=== PATIENT | female | born 1955 | race Caucasian/White ===

== ENCOUNTER 2020-04-22 14:10 | Emergency (ER) | payer BC ==
[2020-04-22 14:55] VITALS: BP 161/82; PULSE 80
--- NOTE | 2020-04-22 15:27 | EDM.PDOC ---
ED HPI GENERAL MEDICAL PROBLEM - General Chief Complaint: General Stated Complaint: BACK PAIN, SOB Time Seen by Provider: 04/22/20 14:50 Source of Information: Reports: Patient History Limitations: Reports: No Limitations - History of Present Illness INITIAL COMMENTS - FREE TEXT/NARRATIVE: This patient presents to the ED for evaluation of back pain. She states that she developed a burning pain across her back between her shoulder blades about 4 days ago. She has tried Tylenol for it but that has not helped much. She also has noticed a feeling of fullness in her chest as well as some "discomfort" down her left arm. She denies any chest pain. She also has noticed some shortness of breath in the past couple of days has well. She denies any recent illness including fever, cough or sore throat. Onset: Gradual Onset Date: 04/19/20 Duration: Getting Worse - Related Data Allergies Allergy/AdvReac Type Severity Reaction Status Date / Time Sulfa (Sulfonamide Allergy Rash Verified 12/25/15 09:05 Antibiotics) Tetracyclines Allergy Nausea Verified 12/25/15 09:05 Home Meds: Home Meds Cholecalciferol (Vitamin D3) [Vitamin D] 1,000 units PO DAILY 08/08/15 [History] Simvastatin 10 mg PO DAILY 08/08/15 [History] Tiotropium [Spiriva Handihaler] 18 mcg INH DAILY 08/08/15 [History] hydroCHLOROthiazide [Hydrochlorothiazide] 12.5 mg PO DAILY 10/09/15 [History] Past Medical History Other HEENT History: reading glassess Cardiovascular History: Reports: Hypertension Respiratory History: Reports: COPD, SOB Other Gastrointestinal History: constipation at times TARGET SETTER History: Reports: , Other (See Below) Other TARGET SETTER History: section 2x Musculoskeletal History: Reports: Arthritis Psychiatric History: Reports: Anxiety Endocrine/Metabolic History: Reports: None - Past Surgical History HEENT Surgical History: Reports: None Cardiovascular Surgical History: Reports: None Respiratory Surgical History: Reports: None GI Surgical History: Reports: None Social & Family History - Tobacco Use Smoking Status *Q: Former Smoker Used Tobacco, but Quit: Yes Month/Year Tobacco Last Used: 1999 Second Hand Smoke Exposure: No - Caffeine Use Caffeine Use: Reports: Coffee - Recreational Drug Use Recreational Drug Use: No ED ROS GENERAL - Review of Systems Review Of Systems: Comprehensive ROS is negative, except as noted in HPI. ED EXAM, GENERAL - Physical Exam Exam: See Below Exam Limited By: No Limitations General Appearance: Alert, WD/WN, No Apparent Distress Eye Exam: Bilateral Eye: PERRL Ears: Normal External Exam Nose: Normal Inspection Throat/Mouth: Normal Inspection Head: Atraumatic, Normocephalic Neck: Normal Inspection, Supple, Full Range of Motion Respiratory/Chest: No Respiratory Distress, Lungs Clear, Normal Breath Sounds, Chest Non-Tender Cardiovascular: Regular Rate, Rhythm Back Exam: Normal Inspection, Other (burning pain is not reproducible) Neurological: Alert, Oriented Psychiatric: Normal Affect, Normal Mood Skin Exam: Warm, Intact EKG INTERPRETATION EKG Date: 04/22/20 Time: 15:20 Rhythm: NSR Rate (Beats/Min): 75 [place]: Normal P-Wave: Present QRS: Normal ST-T: Normal QT: Normal Course - Vital Signs Last Recorded V/S: Last Vital Signs Temp 36.3 C 04/22/20 14:54 Pulse 80 04/22/20 14:54 Resp 16 04/22/20 14:54 BP 161/82 H 04/22/20 14:54 Pulse Ox 99 04/22/20 14:54 - Orders/Labs/Meds Orders: Active Orders 24 hr Category Date Time Status EKG Documentation Completion [RC] ASDIRECTED Care 04/22/20 15:26 Active Chest wo Cont [CT] Stat Exams 04/22/20 14:59 Taken EKG 12 Lead [EK] Routine Ther 04/22/20 15:26 Ordered - Re-Assessments/Exams Free Text/Narrative Re-Assessment/Exam: 04/22/20 15:56 This patient presents for evaluation of upper back pain. Based on history and exam, this is consistent with back pain of a musculoskeletal etiology. The pain is non-radicular in nature and non-reproducible; there is nothing on exam to indicate a referred pain from the chest of cardiac or pulmonary etiology such as pneumonia, pneumothorax, PE, cardiac complications or rib fracture. There are no red flag symptoms to suggest acute neurologic emergency, acute spinal cord or nerve root compression or other acute nerve injury to indicate emergent MRI. I do not suspect referred pain from an intraabdominal or urologic process. The patient was encouraged to use ibuprofen as well as ice and rest for pain control. The patient was instructed to follow up with PCP in 1-2 weeks for failure to improve. The patient was given return precautions including uncontrolled pain, chest pain or shortness of breath, fever or new onset weakness. Departure - Departure Time of Disposition: 16:00 Disposition: Home, Self-Care 01 Condition: Good Clinical Impression: Back pain - Discharge Information Referrals: PCP,None [Primary Care Provider] - Forms: ED Department Discharge Sepsis Event Note - Evaluation Sepsis Screening Result: No Definite Risk - Focused Exam Vital Signs: Vital Signs Temp Pulse Resp BP Pulse Ox 04/22/20 14:54 36.3 C 80 16 161/82 H 99 04/22/20 14:40 36.3 C 80 16 161/82 H 99 Date Exam was Performed: 04/22/20 Time Exam was Performed: 15:55 - My Orders Last 24 Hours: My Active Orders 04/22/20 14:59 Chest wo Cont [CT] Stat 04/22/20 15:26 EKG Documentation Completion [RC] ASDIRECTED EKG 12 Lead [EK] Routine - Assessment/Plan Last 24 Hours: My Active Orders 04/22/20 14:59 Chest wo Cont [CT] Stat 04/22/20 15:26 EKG Documentation Completion [RC] ASDIRECTED EKG 12 Lead [EK] Routine
--- NOTE | 2020-04-25 23:27 | CT ---
DATE OF SERVICE: 04/22/2020 CLINICAL DATA: Back pain, chest tightness. UNENHANCED CHEST CT: Multislice acquisition through the chest without IV contrast was performed. No priors. There are extensive emphysematous changes throughout both lungs. No areas of consolidation. No masses. No pleural effusion. No pneumothorax. The heart size is normal. No significant pericardial effusion. No aortic aneurysm. No hilar or mediastinal adenopathy. There is heterogeneous fatty infiltration of the liver. IMPRESSION: Findings consistent with COPD. No acute abnormalities. [id number] [facility]
== END 2020-04-22 16:03 | disposition home or self-care (01) ==
LOC: LB.ED 14:10
DX: M54.6 Pain in thoracic spine (principal); I10 Essential (primary) hypertension; J44.9 Chronic obstructive pulmonary disease, unspecified; F41.9 Anxiety disorder, unspecified; Z79.899 Other long term (current) drug therapy; Z87.891 Personal history of nicotine dependence; Z88.1 Allergy status to other antibiotic agents; Z88.2 Allergy status to sulfonamides
CPT/HCPCS: 71250; 93005; 99283-25

== ENCOUNTER 2022-06-06 17:43 | Emergency (ER) | payer MEDICARE ==
[2022-06-06 18:20] VITALS: BP 135/65; PULSE 103
[2022-06-06] MEDS: Dexamethasone 4 MG/ML SDV IVPUSH ONE (18:52)
[2022-06-06] MEDS: Sodium Chloride 0.9% 500 ML IV ONE (18:53)
[2022-06-06] MEDS: Acetaminophen 500 MG Tab PO ONE (18:55)
[2022-06-06] MEDS: Aspirin 81 MG Tab.Chew PO ONE (18:56)
[2022-06-06] MEDS: Dexamethasone 4 MG/ML SDV ONE (19:00)
== END 2022-06-06 19:20 | disposition home or self-care (01) ==
LOC: LB.ED 17:43
DX: U07.1 COVID-19 (principal); I10 Essential (primary) hypertension; Z88.2 Allergy status to sulfonamides; Z79.899 Other long term (current) drug therapy
CPT/HCPCS: 36415; 71045; 80053; 84484; 85025; 96374; 99283; 99283-25; A9270-GY; J1100; J7040; U0002

== ENCOUNTER 2023-01-14 15:34 | Emergency (ER) | payer MEDICARE ==
[2023-01-14] MEDS ORDERED: Sodium Chloride 0.9% 10 ML Syringe FLUSH PRN (15:44)
[2023-01-14 16:26] VITALS: BP 129/61; PULSE 87
[2023-01-14 16:32] LABS: TROPONIN I HIGH SENSITIVITY 7.2 pg/ml (<=60.4)
[2023-01-14] MEDS ORDERED: Ketorolac 30 MG/ML SDV IVPUSH ONE (16:53)
== END 2023-01-14 17:15 | disposition home or self-care (01) ==
LOC: LB.ED 15:34
DX: S43.421A Sprain of right rotator cuff capsule, initial encounter (principal); I10 Essential (primary) hypertension; J44.9 Chronic obstructive pulmonary disease, unspecified; Z88.5 Allergy status to narcotic agent; Z88.2 Allergy status to sulfonamides; Z88.1 Allergy status to other antibiotic agents; Z79.82 Long term (current) use of aspirin; Z79.899 Other long term (current) drug therapy; Z86.73 Personal history of transient ischemic attack (TIA), and cerebral infarction without residual deficits
CPT/HCPCS: 36415; 71045; 80048; 84484; 85027; 85379; 93005; 99284

== ENCOUNTER 2023-07-22 11:34 | Emergency (ER) | payer MEDICARE ==
[2023-07-22 12:19] VITALS: BP 123/80; PULSE 80
== END 2023-07-22 13:07 | disposition home or self-care (01) ==
LOC: LB.ED 11:34
DX: K03.81 Cracked tooth (principal); I10 Essential (primary) hypertension; J43.9 Emphysema, unspecified; M19.90 Unspecified osteoarthritis, unspecified site; Z98.890 Other specified postprocedural states; Z79.899 Other long term (current) drug therapy; Z79.82 Long term (current) use of aspirin; Z88.5 Allergy status to narcotic agent; Z88.2 Allergy status to sulfonamides; Z88.1 Allergy status to other antibiotic agents
CPT/HCPCS: 99282